=== PATIENT | female | born 1990 | race African-American/Black ===

== ENCOUNTER 2021-11-06 19:40 | Emergency (ER) | payer MEDICAID ==
[~2021-11-06] VITALS: Ht 162.6 cm; Wt 75.0 kg
[2021-11-06] MEDS ORDERED: METHOCARBAMOL 500MG TABLET PO ONE (20:15)
[2021-11-06] MEDS ORDERED: IBUPROFEN 600MG TABLET PO ONE (20:15)
[2021-11-07] MEDS ORDERED: IBUP-2029 MT (00:14)
[2021-11-07] MEDS ORDERED: LIDO1ADH5 TP (00:14)
[2021-11-07] MEDS ORDERED: METH-773 MT (00:14)
[2021-11-07 00:32] VITALS: BP 126/77
== END 2021-11-07 00:34 | disposition home or self-care (01) ==
LOC: ER 19:40
DX: S16.1XXA Strain of muscle, fascia and tendon at neck level, initial encounter (principal); M54.50 Low back pain, unspecified; M54.10 Radiculopathy, site unspecified; J45.909 Unspecified asthma, uncomplicated; Z98.1 Arthrodesis status; X58.XXXA Exposure to other specified factors, initial encounter; Y93.89 Activity, other specified; Y92.018 Other place in single-family (private) house as the place of occurrence of the external cause
CPT/HCPCS: 72128; 81025; 99284